=== PATIENT | female | born 1975 | race African-American/Black ===

== ENCOUNTER 2024-06-21 19:24 | Emergency (ER) | payer OTHER, SELFPAY ==
[2024-06-21 19:43] VITALS: BP 188/102
--- NOTE | 2024-06-21 19:43 | ED.GENMED ---
ED Provider Triage
<Donald Billingsley PA-C - Last Filed: 06/22/24 15:57>
-
Patient seen by provider in Triage?: Seen in Triage
Attestation: A medical screening examination has been initiated by a qualified medical provider. Based on the assessment performed at this time, it has been determined that an emergent medical condition may exist and the patient has been informed
that further medical evaluation and possible additional diagnostic testing may be needed.
HPI: No improvement when laying flat but notes worsening symptoms when up and moving. Describes it as a room spinning sensation. No recent fevers or illnesses. No focal weakness or numbness. Patient denies any take. Noted to be significantly
hypertensive on arrival. CT of the head ordered. Labs ordered. Antivert ordered for symptomatic relief.
GENERAL: Alert , in no apparent distress
EYE: No visual abnormalities.
NECK: Trachea midline
ENT: No visible abnormalities.
LUNGS: No acute respiratory distress
NEUROLOGICAL: Alert and oriented
SKIN: Skin intact. No visible changes.
MUSCULOSKELETAL: Moving extremities normally
PSYCH: Normal and appropriate interaction.
This is a medical evaluation conducted in person to initiate diagnostic evaluation and provide initial therapeutics. Please see further documentation by the treating clinician. 48-year-old female presenting to the emergency department for
evaluation of vertigo that started over the last 24 hours.
History of Present Illness
<Donald Billingsley PA-C - Last Filed: 06/22/24 15:57>
General
Chief Complaint: Dizziness
Time Seen by Provider: 06/22/24 00:58
<Kasandra Alfonso DO - Last Filed: 06/22/24 03:01>
History of Present Illness
History of Present Illness:
48-year-old female without significant past medical history presenting to the emergency department for dizziness. Patient reports symptoms for the past several days. Dizziness is worse when she goes from a sitting to a standing position. Also
notes dizziness with certain head movements. Dizziness was most pronounced at onset of symptoms, has slightly improved. Denies any fall or trauma. Denies any visual changes. Denies any weakness or numbness to her extremities. Denies chest pain
or difficulty breathing. Denies abdominal pain or GI symptoms. Denies ever having the symptoms in the past. Denies additional acute medical complaints
Phy Exam
<Kasandra Alfonso DO - Last Filed: 06/22/24 03:01>
Physical Exam
Physical Exam:
General: Well-appearing, no clinical signs of dehydration, nontoxic and in no acute distress
HEENT: protecting airway
Neck: appears supple
CV: Normal heart rate, regular rhythm, no evidence of cyanosis
Resp: No accessory muscle use, no increased work of breathing, lungs clear to auscultation bilaterally
Abd: no distension
Extremities: No deformities, no swelling
Neuro: alert, no focal neurologic deficit
: deferred
Rectal: deferred
Psych: Normal affect
Skin: Intact
Course
<Donald Billingsley PA-C - Last Filed: 06/22/24 15:57>
Orders/Labs/Results
Orders:
Orders
06/21/24 19:27
ECG [Electrocardiogram (*1)] Urgent
Reason for Study: Vertigo / Dizzy
EKG- Treatment ONCE
06/21/24 19:42
Meclizine [Antivert] 25 mg PO NOW STA
06/21/24 19:43
CT Head W/o Iv Contrast Urgent
Comment:
Reason For Exam: vertigo, HTN
06/21/24 19:51
Basic Metabolic Panel Urgent
Complete Blood Count/With Diff Urgent
06/22/24 01:28
Orthostatic VS- Treatment ONCE
Meclizine [Antivert] 25 mg PO NOW STA
Abnormal Lab Results
06/21/24
19:51
Monocytes % 11.4 H %
(1.7-9.3)
BUN 24 H mg/dl
(7-17)
Creatinine 1.1 H mg/dL
(0.6-1.0)
06/21/24 19:51
06/21/24 19:51
Vital Signs
Initial and Last Documented VS:
Initial Vital Signs
Temp Pulse Resp BP Pulse Ox
98.2 F 86 20 188/102 100
06/21/24 19:43 06/21/24 19:43 06/21/24 19:43 06/21/24 19:43 06/21/24 19:43
Last Documented Vital Signs
Temp Pulse Resp BP Pulse Ox
98.2 F 70 18 139/91 100
06/21/24 19:43 06/22/24 00:30 06/22/24 00:30 06/22/24 01:58 06/22/24 02:00
<Kasandra Alfonso, - Last Filed: 06/22/24 03:01>
Orders/Labs/Results
Orders:
Orders
06/21/24 19:27
ECG [Electrocardiogram (*1)] Urgent
Reason for Study: Vertigo / Dizzy
EKG- Treatment ONCE
06/21/24 19:42
Meclizine [Antivert] 25 mg PO NOW STA
06/21/24 19:43
CT Head W/o Iv Contrast Urgent
Comment:
Reason For Exam: vertigo, HTN
06/21/24 19:51
Basic Metabolic Panel Urgent
Complete Blood Count/With Diff Urgent
06/22/24 01:28
Orthostatic VS- Treatment ONCE
Meclizine [Antivert] 25 mg PO NOW STA
Abnormal Lab Results
06/21/24
19:51
Monocytes % 11.4 H %
(1.7-9.3)
BUN 24 H mg/dl
(7-17)
Creatinine 1.1 H mg/dL
(0.6-1.0)
06/21/24 19:51
06/21/24 19:51
Vital Signs
Initial and Last Documented VS:
Initial Vital Signs
Temp Pulse Resp BP Pulse Ox
98.2 F 86 20 188/102 100
06/21/24 19:43 06/21/24 19:43 06/21/24 19:43 06/21/24 19:43 06/21/24 19:43
Last Documented Vital Signs
Temp Pulse Resp BP Pulse Ox
98.2 F 70 18 139/91 100
06/21/24 19:43 06/22/24 00:30 06/22/24 00:30 06/22/24 01:58 06/22/24 02:00
<Kasandra Alfonso DO - Last Filed: 06/22/24 03:01>
MDM/Problems Addressed
MDM/Problems Addressed:
48-year-old female presenting to the emergency department for dizziness. Vital signs on arrival significant for hypertension, however resolved without intervention.
On exam patient is resting comfortably, no acute distress or discomfort. Unremarkable cardiac and pulmonary exam. EKG obtained on arrival, nonischemic, no arrhythmia. Without present concern for cardiac etiology to patient's symptoms. No focal
neurologic deficits on exam, without concern for central neurologic process. Patient does note that symptoms are positional. Do suspect component of BPPV, described as intense spinning sensation. Patient had screening laboratory analysis prior to
my assessment, unremarkable. Patient had also been ordered for CT of her brain, which is normal. Will trial meclizine and reassess for improvement. Will also obtain orthostatic vital signs
03:00 - Orthostatics are negative. Patient remained stable after meclizine. At this time feel stable for discharge. Information provided for vestibular therapy. Prescription provided for meclizine. Strict return precautions communicated and
patient verbalized understanding
<Kasandra Alfonso DO - Last Filed: 01/28/25 03:01>
*EKG
Interpreted by ED Provider?: Yes
EKG Intrepretation Date: 06/22/24
EKG Intrepretation Time: 02:57
Interpretation: normal
Heart Rate: 67
Rate: normal
Rhythm: sinus
[place]: normal axis
Interval: normal interval
QRS Pattern: normal QRS
Ischemia: no ischemia
*Critical Care Note
Total Time (30-74mins, 75-104mins- exclusive of procedures): Not Applicable
ED Attending Note
<Donald Billingsley PA-C - Last Filed: 06/22/24 15:57>
-
Portions of this chart may have been created with voice recognition software.� Occasional wrong word or��sound alike� substitutions may have occurred due to the inherent limitations of voice recognition software.
Discharge Plan
Departure
Patient Disposition: Home (Routine Discharge)
Date of Disposition: 06/22/24
Time of Disposition: 02:47
Patient with high blood pressure during this ER visit?: No
Condition: Good
Discharge Problem:
Dizziness, Vertigo
Instructions: Vertigo (a Type of Dizziness) (DC), Dizziness
Prescriptions:
New
meclizine [Antivert] 25 mg Tablet,Chewable
25 mg PO Q8HPRN PRN (Reason: nausea or vertigo) Qty: 15 0RF
Referrals:
Madison Walters MD [Family Provider] -
Luis Brush MD [Active] -
Activity Restrictions/Additional Instructions:
You were seen in the emergency department for dizziness
You were found to have normal blood work, EKG, CT imaging of your brain. We suspect that you have a diagnosis known as vertigo. Please follow-up with your primary care doctor and the ear nose and throat doctor if symptoms are persisting.
Please follow-up closely with your primary care physician.
Return to the emergency department for any worsening of your symptoms, or any development of chest pain, difficulty breathing, abdominal pain with persistent vomiting and inability to tolerate food or liquid by mouth (concern for dehydration),
weakness, headache or confusion, fever greater than 100.4, or any additional symptoms that are concerning to you.
Thank you for choosing [facility].
Interventions
Interventions:
*Risk Screen - Suicide Last Done: 06/21/24 19:43
*General Assessment Last Done: 06/22/24 01:10
*Neglect/Abuse Screening Last Done: 06/21/24 19:43
ED- Fall Risk Assessment Last Done: 06/22/24 01:10
*ED COVID-19 Vaccine History Last Done: 06/22/24 01:10
*Nursing Disposition Last Done: 06/22/24 03:02
ED- Pulmonary Assessment Last Done: 06/22/24 01:10
ED- Neurological Assessment Last Done: 06/22/24 01:10
ED- Cardiac Assessment Last Done: 06/22/24 01:10
ED Swallowing Screen Last Done: 06/22/24 01:17
Discharge Date and Time
Discharge Date/Time: 06/22/24 03:03
Print Language: BOLIVIAN
[2024-06-21 20:06] LABS: % Basophils 0.4 % (0-2); % Eosinophils 3.1 % (0-6); % Immature Granulocytes 0.2 % (0-0.5); % Lymphocytes 40.6 % (20.5-51.1); % Monocytes 11.4 % (1.7-9.3); % Neutrophils 44.3 % (42.2-75.2); Absolute Eosinophils 0.2 10^3/uL (0-0.7); Absolute Monocytes 0.6 10^3/uL (0.1-0.6); Absolute Neutrophils 2.2 10^3/uL (1.4-6.5); Hematocrit 37.5 % (37.0-47.0); Hemoglobin 12.9 g/dL (12.0-16.0); Mean Corp Hgb Conc. 34.4 g/dL (33.0-37.0); Mean Corpuscular Hgb 29.2 pg (27.0-31.0); Mean Corpuscular Volume 84.8 fL (81.0-99.0); Mean Platelet Volume 10.4 fL (7.4-10.4); Nucleated Red Blood Cells % 0 %; Platelet Count 253 10^3/uL (130-400); Red Blood Cell Count 4.42 10^6/uL (4.20-5.40); Red Cell Dist. Width 12.4 % (11.5-14.5); White Blood Cell Count 4.9 10^3/uL (4.8-10.8)
[2024-06-21 20:18] LABS: Blood Urea Nitrogen 24 mg/dl (7-17); Calcium 9.6 mg/dl (8.4-10.2); Carbon Dioxide 30 mmol/L (22-30); Chloride 98 mmol/L (98-107); Glucose 93 mg/dl (70-99); Potassium 3.9 mmol/L (3.5-5.1); Sodium 135 mmol/L (135-145); eGFR > 60.00
[2024-06-22 00:30] VITALS: BP 120/74
[2024-06-22 01:09] VITALS: BP 126/68
[2024-06-22 01:10] VITALS: BMI 30.6
[2024-06-22] MEDS: ANTIVERT 25 MG PO (01:33)
[2024-06-22 01:52] VITALS: BP 119/84
[2024-06-22 01:53] VITALS: BP 119/84; BP 132/90; BP 139/91; PULSE 62; PULSE 65; PULSE 75
[2024-06-22 01:55] VITALS: BP 132/90
[2024-06-22 01:58] VITALS: BP 139/91
== END 2024-06-22 03:03 | disposition home or self-care (01) ==
LOC: EMR 19:24
PROVIDERS: Physician Assistant Medical; EMERGENCY PHYSICIAN Student in an Organized Health Care Education/Training Program; FAMILY PHYSICIAN Student in an Organized Health Care Education/Training Program
DX: R42 Dizziness and giddiness (principal)
CPT/HCPCS: 99284; 70450; 80048; 85025; 93005